=== PATIENT | female | born 1990 | race African-American/Black ===

== ENCOUNTER 2019-03-06 07:09 | Emergency (ER) | payer BC ==
[2019-03-06 07:13] VITALS: TEMP 98.3; BMI 37.1
--- NOTE | 2019-03-06 08:28 | PDOC ---
History of Present Illness - General Chief Complaint: Pain Stated Complaint: BACK PAIN Time Seen by Provider: 03/06/19 08:17 History Source: Patient Exam Limitations: No Limitations - History of Present Illness Initial Comments: 03/06/19 08:27 28 y/o female with PMH of DM, HTN presents to the ED with complaints of back left upper back pain. Patient states that the pain started about one week ago; she describes the pain as a burning type of pain. She did not recall straining herself no did she have any trauma to the area. She has not tried to take anything for the pain. Around 3 days ago she started having a burning, tingling sensation in the back that moved to the front. She states that she feels as if there is a rash present however she does not see any rash preset. this has never happened to her before. She denies any systemic symptoms; no chest pains, shortness of breath, nausea/vomiting fevers or chills. She did have chickenpox as a child. she denies any recent travel or any sick contacts. 03/06/19 08:29 = 03/06/19 08:49 Timing/Duration: 1 week Severity: mild Associated Symptoms: denies: chest pain, nausea/vomiting Past History - Travel Traveled outside of the country in the last 30 days: No Close contact w/someone who was outside of country & ill: No - Past Medical History Allergies/Adverse Reactions: Allergies Allergy/AdvReac Type Severity Reaction Status Date / Time No Known Allergies Allergy Verified 03/06/19 07:13 Home Medications: Ambulatory Orders Glipizide [Glipizide Xl] 5 mg PO BID 05/19/15 Simvastatin 10 mg PO HS 05/19/15 metFORMIN HCL [Metformin ER Osmotic] 500 mg PO DAILY 05/19/15 Anemia: (slightly anemic) Asthma: No Cancer: No Cardiac Disorders: No CVA: No COPD: No CHF: No Dementia: No Diabetes: Yes HTN: Yes Hypercholesterolemia: Yes Liver Disease: No Seizures: No - Family Disease History Family Disease History: Diabetes: Father, Mother - Immunization History Immunization Up to Date: Yes - Suicide/Smoking/Psychosocial Hx Smoking History: Never smoked Have you smoked in the past 12 months: No Hx Alcohol Use: No Drug/Substance Use Hx: No Substance Use Type: None Review of Systems - Review of Systems Able to Perform ROS?: Yes Is the patient limited Guamanian proficient: No Constitutional: No: Fever Respiratory: No: Shortness of Breath Cardiac (ROS): No: Chest Pain, Palpitations : No: Burning, Dysuria Musculoskeletal: Yes: Back Pain (left upper back ) Integumentary: Yes: Other (burning;tingling sensation on the left upper back and upper abdomen ) Neurological: No: Headache, Numbness *Physical Exam - Vital Signs Last Vital Signs Temp Pulse Resp BP Pulse Ox 98.3 F 96 H 18 138/84 98 03/06/19 07:11 03/06/19 07:11 03/06/19 07:11 03/06/19 07:11 03/06/19 07:11 - Physical Exam General Appearance: Yes: Nourished Neck: positive: Normal Thyroid Respiratory/Chest: positive: Lungs Clear, Normal Breath Sounds Cardiovascular: positive: Regular Rhythm, Regular Rate, S1, S2 Gastrointestinal/Abdominal: positive: Normal Bowel Sounds, Flat, Soft. negative : Tender Musculoskeletal: positive: Other (left sided upper back slight pain upon palption ). negative: CVA Tenderness Extremity: positive: Normal Inspection Neurologic: positive: Fully Oriented, Alert ED Treatment Course - LABORATORY CBC & Chemistry Diagram: 03/06/19 08:51 03/06/19 08:51 Medical Decision Making - Medical Decision Making 03/06/19 08:55 cbc/cmp/cardiac profile/ekg dispo *DC/Admit/Observation/Transfer Diagnosis at time of Disposition: Back pain - Discharge Dispostion Disposition: HOME - Referrals Referrals: Neftali Newell MD [Primary Care Provider] - - Patient Instructions Printed Discharge Instructions: Back Pain (Alternative Therapy) Additional Instructions: please follow up with dr newell within one week if you begin to see a rash developing on the area please return to the ER immediately avoid sick children or babies please take your diabetes medication ! - Post Discharge Activity - Attestations Physician Attestion: 03/06/19 11:07 Ileana June
[2019-03-06 08:59] LABS: BASO % 0.9 % (0-2.0); EOS % 1.3 % (0-4.5); HEMATOCRIT 36.8 % (32.4-45.2); HEMOGLOBIN 11.5 GM/dL (10.7-15.3); MCH 20.2 pg (25.7-33.7); MCHC 31.2 g/dl (32.0-36.0); MEAN CELL VOLUME 64.8 fl (80-96); MEAN PLT VOLUME 8.6 fl (7.5-11.1); MONO % 6.9 % (3.8-10.2); NEUT % 60.9 % (42.8-82.8); PLATELET COUNT 291 K/MM3 (134-434); RBC 5.68 M/mm3 (3.60-5.2); RDW 15.5 % (11.6-15.6); WHITE BLOOD COUNT 6.3 K/mm3 (4.0-10.0)
[2019-03-06 09:42] LABS: ALBUMIN 3.7 g/dl (3.4-5.0); ALK PHOS 90 U/L (45-117); ANION GAP 8 MMOL/L (8-16); BILIRUBIN,TOTAL 0.2 mg/dL (0.2-1); BLOOD UREA NITROGEN 11 mg/dL (7-18); CALCIUM 9.1 mg/dL (8.5-10.1); CHLORIDE 101 mmol/L (98-107); CO2 26 mmol/L (21-32); CREATININE 0.6 mg/dL (0.55-1.3); POTASSIUM 4.5 mmol/L (3.5-5.1); SGOT/AST 12 U/L (15-37); SGPT/ALT 29 U/L (13-61); SODIUM 136 mmol/L (136-145); TOT PROT 7.2 g/dl (6.4-8.2)
[2019-03-06 09:56] LABS: GLUCOSE,RANDOM 325 mg/dL (74-106)
--- NOTE | 2019-03-06 09:56 | PDOC ---
Attending Attestation - Resident Resident Name: Ileana June - ED Attending Attestation I have performed the following: I have examined & evaluated the patient, The case was reviewed & discussed with the resident, I agree w/resident's findings & plan, Exceptions are as noted - HPI HPI: 28 yo F history DM, HTN presents with L flank pain radiating to chest for past week. Pain described as burning. No dysuria, fever, N/V, SOB. No sick contacts. She had chicken pox as a child. - Physicial Exam PE: GENERAL: Awake, alert, and fully oriented, in no acute distress HEAD: No signs of trauma EYES: PERRLA, EOMI, sclera anicteric, conjunctiva clear ENT: Auricles normal inspection, hearing grossly normal, nares patent, oropharynx clear without exudates. Moist mucosa NECK: Normal ROM, supple, no lymphadenopathy, JVD, or masses LUNGS: Breath sounds equal, clear to auscultation bilaterally. No wheezes, and no crackles HEART: Regular rate and rhythm, normal S1 and S2, no murmurs, rubs or gallops ABDOMEN: Soft, nontender, normoactive bowel sounds. No guarding, no rebound. No masses EXTREMITIES: Normal range of motion, no edema. No clubbing or cyanosis. No cords, erythema, or tenderness NEUROLOGICAL: Cranial nerves II through XII grossly intact. Normal speech, normal gait. Motor and sensation intact SKIN: Warm, Dry, normal turgor, no rashes or lesions noted. - Medical Decision Making Pt with back pain in a dermatomal distribution, suspect that she may develop shingles. Labs obtained, trop negative. Will obtain CXR. If all negative, we counseled patient to return immediately if she develops a rash so that she can start antivirals. Also counseled her that if she develops a rash to avoid unvaccinated people, young children, and women.
[2019-03-06 11:17] VITALS: BP 132/76; PULSE 82
[2019-03-06 12:01] LABS: ANISOCYTOSIS 1+; MACROCYTOSIS 0; PLATELET ESTIMATE NORMAL
--- NOTE | 2019-03-06 15:20 | EKG ---
Test Reason : Blood Pressure : / mmHG Vent. Rate : 070 BPM Atrial Rate : 070 BPM P-R Int : 146 ms QRS Dur : 084 ms QT Int : 380 ms P-R-T Axes : 035 029 020 degrees QTc Int : 410 ms NORMAL SINUS RHYTHM NORMAL ECG WHEN COMPARED WITH ECG OF 20-SEP-2016 15:27, NO SIGNIFICANT CHANGE WAS FOUND Confirmed by OJ MICHAELS MD ([id number]) on 03/06/2019 3:20:11 PM Referred By: Confirmed By:OJ MICHAELS MD
== END 2019-03-06 11:16 | disposition home or self-care (01) ==
LOC: JER 07:09
DX: M54.9 Dorsalgia, unspecified (principal); I10 Essential (primary) hypertension; E78.00 Pure hypercholesterolemia, unspecified; E11.9 Type 2 diabetes mellitus without complications; Z79.84 Long term (current) use of oral hypoglycemic drugs
CPT/HCPCS: 36415; 71046-TC-FY; 80053; 82550; 82553; 84484; 84703; 85025; 93005; 93010; 99282-25